=== PATIENT | female | born 1960 | race Caucasian/White ===

== ENCOUNTER → 2017-05-11 | Outpatient (CLI) | payer BC | LOC: M WHC 07:48 | DX: Z12.31 Encounter for screening mammogram for malignant neoplasm of breast (principal) | CPT/HCPCS: 77067 ==

== ENCOUNTER → 2017-12-16 | Outpatient (REF) | payer BC ==
[2017-12-16 12:56] LABS: RHEUMATOID FACTOR QUANT < 10.0 IU/ML (<15.0)
[2017-12-16 13:33] LABS: ERYTHROCYTE SEDIMENTATION RATE 35 mm/hr (0-30)
[2017-12-18 00:06] LABS: ANTINUCLEAR ANTIBODIES DIRECT Negative (Negative); Lyme Disease IgG/IgM Antibodie <0.91 ISR (0.00-0.90); Lyme Disease IgM Ab Quantitati <0.80 index (0.00-0.79)
== END ==
LOC: M LABDRAW1 12:19
DX: M25.041 Hemarthrosis, right hand (principal)
CPT/HCPCS: 36415

== ENCOUNTER → 2017-12-22 | Outpatient (CLI) | payer BC | LOC: M WUC 14:07 | DX: S20.221A Contusion of right back wall of thorax, initial encounter (principal); X58.XXXA Exposure to other specified factors, initial encounter; Y92.9 Unspecified place or not applicable | CPT/HCPCS: 71101 ==

== ENCOUNTER → 2018-06-07 | Outpatient (CLI) | payer BC ==
[~2018-06-07] MED LIST: MEDR10TA PO; NEUROTIN PO; NORCOTAB PO
--- NOTE | 2018-06-07 15:55 | REPMRS ---
Patient History The patient states she had a clinical breast exam in 05/2018. Patient has history of other cancer at age 31. No known family history of cancer. Took hormonal contraceptives for 17 years. 3D TOMOSYNTHESIS WAS PERFORMED. Digital Woman Screen Mammo: June 07, 2018 - Exam #: [id number] Bilateral CC and MLO view(s) were taken. Technologist: Tasia Rodriguez, Technologist Prior study comparison: May 11, 2017, digital woman screen mammo performed at [facility]. April 14, 2016, bilateral digital woman screen mammo, performed at [facility]. FINDINGS: The breast tissue is heterogeneously dense. This may lower the sensitivity of mammography. There has been no change in the appearance of the mammogram from the prior studies. There is a moderate amount of residual fibroglandular tissue which is fairly symmetric. There is no interval development of dominant mass, areas of architectural distortion, or clustered microcalcification typical of malignancy. Assessment: BI-RADS/ACR category 1 mammogram. Negative Mammogram. Recommendation Routine screening mammogram in 1 year (for women over age 40). This mammogram was interpreted with the aid of an FDA-approved computer-aided dectection system. Electronically Signed By: Curt Wheeler MD 06/07/18 1726
== END ==
LOC: M WHC 14:33
PROVIDERS: ATTEND Internal Medicine
DX: Z12.31 Encounter for screening mammogram for malignant neoplasm of breast (principal); Z85.89 Personal history of malignant neoplasm of other organs and systems; Z92.0 Personal history of contraception

== ENCOUNTER → 2021-12-08 | Outpatient (CLI) | payer BC | LOC: M WUC 11:32 | PROVIDERS: ATTEND Internal Medicine | DX: S92.511A Displaced fracture of proximal phalanx of right lesser toe(s), initial encounter for closed fracture (principal); X58.XXXA Exposure to other specified factors, initial encounter ==